=== PATIENT | male | born 1985 ===

== ENCOUNTER → 2021-11-24 | Outpatient (CLI) | payer OTHER | END | disposition home or self-care (01) | LOC: RAD 11:08 | PROVIDERS: ATTEND Urology | DX: Z01.811 Encounter for preprocedural respiratory examination (principal) ==

== ENCOUNTER 2021-11-25 06:18 | Day surgery (SDC) | payer OTHER | END 2021-11-25 15:10 | disposition home or self-care (01) | LOC: CIR.AMB 06:18 | PROVIDERS: ATTEND Urology | DX: Z30.2 Encounter for sterilization (principal); J45.909 Unspecified asthma, uncomplicated ==